=== PATIENT | male | born 2000 | race Caucasian/White ===

== ENCOUNTER 2021-04-19 07:22 | Emergency (ER) | payer OTHER ==
[~2021-04-19] VITALS: Ht 182.9 cm; Wt 59.0 kg
--- NOTE | 2021-04-19 08:15 | NUR ---
BIB PARTNER C/O R SIDED ABDOMINAL PAIN STARTED LAST NIGHT. RATES PAIN 7/10. WILL CONTINUE TO MONITOR THE PATIENT.
[2021-04-19 08:30] LABS: BASOPHILS % (AUTO) 0.4 % (0.0-2.0); EOSINOPHILS % (AUTO) 2.1 % (0.0-6.0); HEMATOCRIT 46 % (39-51); HEMOGLOBIN 15.2 g/dL (13.5-17.5); LYMPHOCYTES % (AUTO) 21.2 % (20.0-44.0); MEAN CORPUSCULAR HGB CONC 33 g/dl (31.0-36.0); MEAN CORPUSCULAR VOLUME 95 fL (80-96); MONOCYTES # (AUTO) 0.8 K/uL (0.1-1.30); MONOCYTES % (AUTO) 8.4 % (2.0-12.0); NEUTROPHILS # (AUTO) 6.3 K/uL (1.8-8.9); NEUTROPHILS % (AUTO) 67.9 % (43.0-81.0); PLATELET COUNT (AUTO) 246 K/uL (150-450); WHITE BLOOD COUNT (AUTO) 9.2 K/uL (4.3-11.0)
[2021-04-19] MEDS ORDERED: IV NS 0.9% 1,000 ML BAG IV ONE (08:30)
[2021-04-19] MEDS ORDERED: KETOROLAC TROMETHAMINE INJ 30 MG/ML VIAL IV ONE (08:30)
[2021-04-19] MEDS ORDERED: MORPHINE SULFATE INJ 2 MG/ML DISP.SYRIN IV ONE (08:30)
[2021-04-19] MEDS ORDERED: ONDANSETRON HCL/PF 4 MG/2 ML VIAL IVP ONE (08:30)
[2021-04-19 09:07] LABS: BILIRUBIN,URINE NEGATIVE (NEGATIVE); COLOR,URINE YELLOW (YELLOW); LEUKOCYTE ESTERASE ,URINE NEGATIVE (NEGATIVE); NITRITE, URINE NEGATIVE (NEGATIVE); PROTEIN,URINE NEGATIVE (NEGATIVE); UGLUCOSE NEGATIVE (NEGATIVE); UROBILINOGEN,URINE 0.2 EU/dL (0.2)
[2021-04-19 09:08] LABS: ALBUMIN 4.4 g/dL (3.4-5.0); BILIRUBIN,DIRECT 0.1 mg/dL (0.0-0.2); BILIRUBIN,TOTAL 0.3 mg/dL (0.2-1.0); CALCIUM, SERUM 8.7 mg/dL (8.5-10.1); CREATININE 0.9 mg/dL (0.6-1.3); POTASSIUM 4.1 mmol/L (3.5-5.1); TOTAL PROTEIN, SERUM 7.7 g/dL (6.4-8.2)
[2021-04-19] MEDS ORDERED: MORPHINE SULFATE INJ 2 MG/ML DISP.SYRIN ONE (09:08)
[2021-04-19] MEDS ORDERED: ONDANSETRON HCL/PF 4 MG/2 ML VIAL ONE (09:08)
[2021-04-19] MEDS ORDERED: KETOROLAC TROMETHAMINE INJ 30 MG/ML VIAL ONE (09:08)
[2021-04-19] MEDS ORDERED: DOCUSATE SODIUM LIQ 100 MG/10 ML UDC PO ONE (10:00)
[2021-04-19] MEDS ORDERED: TAMSULOSIN 0.4 MG CAP.SR.24H PO ONE (10:00)
[2021-04-19] MEDS ORDERED: DOCUSATE SODIUM LIQ 100 MG/10 ML UDC ONE (10:26)
[2021-04-19] MEDS ORDERED: TAMSULOSIN 0.4 MG CAP.SR.24H ONE (10:27)
[2021-04-19 10:32] LABS: BACTERIA,URINE Rare /HPF (None Seen); CALCIUM OXALATE CRYSTALS,UR Rare /HPF (None Seen); RBC,URINE TOO NUMEROUS TO COUN /HPF (0-2); SQUAMOUS EPITHELIAL CELL,UR Rare /HPF (None Seen); WBC,URINE 0-2 /HPF (0-3)
[2021-04-19] MEDS ORDERED: DOCU-141 PO (10:58)
[2021-04-19] MEDS ORDERED: TAMS-12 PO (10:58)
[2021-04-19] MEDS ORDERED: IBUP-1957 PO (10:58)
--- NOTE | 2021-04-19 11:17 | NUR ---
IV removed. Catheter intact and site benign. Pressure and 4x4 applied to site. No bleeding noted.Patient discharged to home in stable condition. Written and verbal after care instructions given. Patient verbalizes understanding of instruction.
[2021-04-19 11:18] VITALS: BP 158/75
[2021-04-19 14:33] LABS: CHOLESTEROL 151 mg/dL (<200); HDL CHOLESTEROL 30 mg/dL (40-60); LDL 98 mg/dL (0-99); TRIGLYCERIDES 149 mg/dL (30-150)
== END 2021-04-19 11:18 | disposition home or self-care (01) ==
LOC: ER 07:26
DX: N20.0 Calculus of kidney (principal); K59.00 Constipation, unspecified; R74.8 Abnormal levels of other serum enzymes
CPT/HCPCS: 36415; 74176; 76705; 80048; 80061; 80076; 81001; 83690; 85025; 96361; 96374; 96375; 99284; J1885; J2270; J2405; J7030

== ENCOUNTER 2021-04-26 07:54 | Emergency (ER) | payer OTHER ==
[~2021-04-26] VITALS: Ht 182.9 cm; Wt 61.2 kg
[~2021-04-26 07:54] MED LIST: DOCU-141 PO; IBUP-1957 PO; TAMS-12 PO
--- NOTE | 2021-04-26 08:06 | NUR ---
The patient bibs for c/o R flank pain started around 4 am, +N/V, Hx kidney stone, 03/22 ps. Abdomen soft and non-distended. Respiration regular and unlabored. Will continue to monitor the patient.
--- NOTE | 2021-04-26 08:08 | NUR ---
DR GOTTI AT THE BEDSIDE
--- NOTE | 2021-04-26 08:19 | NUR ---
STARTED LINE, BLOOD SPECIMEN COLLECTED AND SENT TO THE LAB. THE LINE IS SALINE LOCKED.
[2021-04-26] MEDS ORDERED: KETOROLAC TROMETHAMINE INJ 30 MG/ML VIAL ONE (08:20)
[2021-04-26] MEDS ORDERED: IV NS 0.9% 1,000 ML BAG IV ONE ×2 (08:30→10:30)
[2021-04-26] MEDS ORDERED: KETOROLAC TROMETHAMINE INJ 30 MG/ML VIAL IV ONE (08:30)
--- NOTE | 2021-04-26 08:58 | NUR ---
THE PATIENT STATES THAT HE DOES NOT FEEL THE URGE TO GIVE URINE AT THE TIME. WILL TRY AGAIN LATER.
[2021-04-26 09:14] LABS: BASOPHILS % (AUTO) 0.3 % (0.0-2.0); HEMATOCRIT 42 % (39-51); HEMOGLOBIN 14.2 g/dL (13.5-17.5); LYMPHOCYTES # (AUTO) 1.3 K/uL (0.8-4.8); LYMPHOCYTES % (AUTO) 10.6 % (20.0-44.0); MEAN CORPUSCULAR HGB CONC 34 g/dl (31.0-36.0); MEAN CORPUSCULAR VOLUME 93 fL (80-96); MONOCYTES # (AUTO) 0.7 K/uL (0.1-1.30); MONOCYTES % (AUTO) 5.6 % (2.0-12.0); NEUTROPHILS # (AUTO) 10.2 K/uL (1.8-8.9); NEUTROPHILS % (AUTO) 82.5 % (43.0-81.0); PLATELET COUNT (AUTO) 210 K/uL (150-450); RED BLOOD CELL COUNT(AUTO) 4.55 MIL/uL (4.5-6.0); WHITE BLOOD COUNT (AUTO) 12.4 K/uL (4.3-11.0)
[2021-04-26] MEDS ORDERED: ONDANSETRON HCL/PF 4 MG/2 ML VIAL ONE (09:14)
[2021-04-26] MEDS ORDERED: MORPHINE SULFATE INJ 4 MG/ML DISP.SYRIN ONE (09:14)
[2021-04-26 09:23] LABS: CALCIUM, SERUM 9.2 mg/dL (8.5-10.1); CREATININE 1.5 mg/dL (0.6-1.3)
[2021-04-26 09:29] LABS: ALBUMIN 4.5 g/dL (3.4-5.0); BILIRUBIN,DIRECT 0.1 mg/dL (0.0-0.2); BILIRUBIN,TOTAL 0.6 mg/dL (0.2-1.0); TOTAL PROTEIN, SERUM 7.6 g/dL (6.4-8.2)
[2021-04-26] MEDS ORDERED: MORPHINE SULFATE INJ 2 MG/ML DISP.SYRIN IV ONE (09:30)
[2021-04-26] MEDS ORDERED: ONDANSETRON HCL/PF 4 MG/2 ML VIAL IVP ONE (09:30)
--- NOTE | 2021-04-26 10:00 | NUR ---
THE PATIENT IS UNABLE TO URINATE AT THIS TIME. DR GOTTI MADE AWARE.
--- NOTE | 2021-04-26 10:49 | NUR ---
urine collected and sent to the lab
[2021-04-26 11:20] LABS: BILIRUBIN,URINE NEGATIVE (NEGATIVE); COLOR,URINE YELLOW (YELLOW); LEUKOCYTE ESTERASE ,URINE NEGATIVE (NEGATIVE); NITRITE, URINE NEGATIVE (NEGATIVE); PH,URINE 6.5 (5.0-8.0); PROTEIN,URINE TRACE mg/dl (NEGATIVE); UGLUCOSE NEGATIVE (NEGATIVE); UROBILINOGEN,URINE 0.2 EU/dL (0.2)
[2021-04-26] MEDS ORDERED: HYDR-3980 PO (11:45)
--- NOTE | 2021-04-26 12:01 | NUR ---
The patient is alert and oriented x4. Respiration regular and unlabored. rates right flank pain 1/10. IV removed. Catheter intact and site benign. Pressure and 4x4 applied to site. No bleeding noted.Patient discharged to home in stable condition. Written and verbal after care instructions given. Patient verbalizes understanding of instruction.
[2021-04-26 12:03] VITALS: BP 116/68
[2021-04-26 12:43] LABS: BACTERIA,URINE Few /HPF (None Seen); SQUAMOUS EPITHELIAL CELL,UR Rare /HPF (None Seen); WBC,URINE 0-2 /HPF (0-3)
== END 2021-04-26 12:03 | disposition home or self-care (01) ==
LOC: ER 07:58
DX: N23 Unspecified renal colic (principal)
CPT/HCPCS: 36415; 80048; 80076; 81001; 83690; 85025; 96361; 96374; 96375; 99284; J1885; J2270; J2405; J7030 ×2

== ENCOUNTER 2021-06-10 04:15 | Emergency (ER) | payer OTHER ==
[~2021-06-10] VITALS: Ht 182.9 cm; Wt 61.7 kg
[~2021-06-10 04:15] MED LIST changes: +HYDR-3980 PO
--- NOTE | 2021-06-10 04:26 | NUR ---
AAOX4. NOT IN RESP DISTRESS. CAME IN FOR R FLANK PAIN X TODAY. PT HAD HX OF KIDNEY STONE AND VERBALIZES THAT IT FEELS THE SAME. PAIN 10/10 CRAMPING. MD AT BEDSIDE. AWAITING FURTHER ORDERS
[2021-06-10] MEDS ORDERED: MORPHINE SULFATE INJ 4 MG/ML DISP.SYRIN ONE ×2 (04:29→04:32)
[2021-06-10] MEDS ORDERED: ONDANSETRON HCL/PF 4 MG/2 ML VIAL ONE (04:29)
[2021-06-10] MEDS ORDERED: IV NS 0.9% 1,000 ML BAG IV ONE (04:30)
[2021-06-10] MEDS ORDERED: ONDANSETRON HCL/PF 4 MG/2 ML VIAL IVP ONE (04:30)
[2021-06-10] MEDS ORDERED: KETOROLAC TROMETHAMINE INJ 30 MG/ML VIAL IV ONE (04:30)
[2021-06-10] MEDS ORDERED: MORPHINE SULFATE INJ 2 MG/ML DISP.SYRIN IV ONE (04:30)
[2021-06-10 04:43] LABS: BASOPHILS % (AUTO) 0.2 % (0.0-2.0); EOSINOPHILS % (AUTO) 0.9 % (0.0-6.0); HEMATOCRIT 44 % (39-51); LYMPHOCYTES # (AUTO) 2.2 K/uL (0.8-4.8); LYMPHOCYTES % (AUTO) 15.1 % (20.0-44.0); MEAN CORPUSCULAR HGB CONC 34 g/dl (31.0-36.0); MEAN CORPUSCULAR VOLUME 91 fL (80-96); MONOCYTES # (AUTO) 0.8 K/uL (0.1-1.30); MONOCYTES % (AUTO) 5.3 % (2.0-12.0); NEUTROPHILS # (AUTO) 11.5 K/uL (1.8-8.9); NEUTROPHILS % (AUTO) 78.5 % (43.0-81.0); PLATELET COUNT (AUTO) 230 K/uL (150-450); RED BLOOD CELL COUNT(AUTO) 4.85 MIL/uL (4.5-6.0); WHITE BLOOD COUNT (AUTO) 14.7 K/uL (4.3-11.0)
--- NOTE | 2021-06-10 05:26 | NUR ---
pt still unable to urinate at this time. pt did try multiple times. was made aware.
[2021-06-10] MEDS ORDERED: TAMS-12 PO (05:28)
[2021-06-10] MEDS ORDERED: HYDR-4275 PO (05:28)
[2021-06-10 05:37] LABS: ALBUMIN 4.7 g/dL (3.4-5.0); BILIRUBIN,DIRECT 0.2 mg/dL (0.0-0.2); CALCIUM, SERUM 9.1 mg/dL (8.5-10.1); CREATININE 1.5 mg/dL (0.6-1.3); TOTAL PROTEIN, SERUM 7.9 g/dL (6.4-8.2)
[2021-06-10] MEDS ORDERED: KETOROLAC TROMETHAMINE 15 MG/ML VIAL ONE (05:41)
[2021-06-10 05:47] LABS: POTASSIUM 2.7 mmol/L (3.5-5.1)
[2021-06-10] MEDS ORDERED: POTASSIUM CHLORIDE 20 MEQ TAB.PRT.SR PO ONE ×3 (06:00→06:03)
[2021-06-10] MEDS ORDERED: POTASSIUM CL. PREMIX PERIPHER. 100 ML ONE (06:02)
[2021-06-10] MEDS: POTASSIUM CL. PREMIX PERIPHER. 50 ML IV SCH ×2 (06:11→06:57)
--- NOTE | 2021-06-10 06:15 | NUR ---
PT STILL UNABLE TO PROVIDE URINE
--- NOTE | 2021-06-10 07:08 | NUR ---
URINE COLLECTED AND SENT TO LAB
--- NOTE | 2021-06-10 07:39 | NUR ---
THE PATIENT IS RECEIVED IN ER BED #9. THE PATIENT IS ALERT AND ORIENTED X4. IN ROOM AIR AND DENIES SOB. RESPIRATION REGULAR AND UNLABORED. WILL CONTINUE TO MONITOR THE PATIENT.
--- NOTE | 2021-06-10 08:21 | NUR ---
PT LAYING COMFORTABLY IN BED. VS STABLE. NO PAIN AT THIS TIME
[2021-06-10 08:27] LABS: BILIRUBIN,URINE NEGATIVE (NEGATIVE); COLOR,URINE YELLOW (YELLOW); LEUKOCYTE ESTERASE ,URINE NEGATIVE (NEGATIVE); NITRITE, URINE NEGATIVE (NEGATIVE); PROTEIN,URINE NEGATIVE (NEGATIVE); UGLUCOSE NEGATIVE (NEGATIVE); UROBILINOGEN,URINE 0.2 EU/dL (0.2)
--- NOTE | 2021-06-10 09:22 | NUR ---
IV removed. Catheter intact and site benign. Pressure and 4x4 applied to site. No bleeding noted.
--- NOTE | 2021-06-10 09:22 | NUR ---
Patient discharged to home in stable condition. Written and verbal after care instructions given. Patient verbalizes understanding of instruction.
[2021-06-10 09:29] VITALS: BP 100/69
[2021-06-10 10:18] LABS: BACTERIA,URINE Rare /HPF (None Seen); CALCIUM OXALATE CRYSTALS,UR Few /HPF (None Seen); SQUAMOUS EPITHELIAL CELL,UR None Seen /HPF (None Seen)
[2021-06-10 10:19] LABS: MUCUS,URINE Rare /LPF (None Seen)
== END 2021-06-10 09:22 | disposition home or self-care (01) ==
LOC: ER 04:17
DX: N23 Unspecified renal colic (principal)
CPT/HCPCS: 36415; 76770; 80048; 80076; 81001; 83690; 83735; 85025; 96361; 96365; 96366; 96375; 99285; J1885; J2270 ×2; J2405; J3480; J7030

== ENCOUNTER 2021-07-12 14:23 | Emergency (ER) | payer OTHER ==
[~2021-07-12] VITALS: Ht 182.9 cm; Wt 59.9 kg
[~2021-07-12 14:23] MED LIST changes: +HYDR-4275 PO
--- NOTE | 2021-07-12 14:28 | NUR ---
BIB SELF C/O R FLANK PAIN STARTED 2 HRS AGO. TO ER BED 2, HOOKED TO MONITOR, VSS. CHANGED TO HOSP GOWN, WARM BLANKET PROVIDED. AWAITING MD GARCIA
--- NOTE | 2021-07-12 14:34 | NUR ---
DR KAPLAN AT BEDSIDE
[2021-07-12] MEDS ORDERED: MORPHINE SULFATE INJ 4 MG/ML DISP.SYRIN ONE ×2 (14:37→16:11)
[2021-07-12] MEDS ORDERED: ONDANSETRON HCL/PF 4 MG/2 ML VIAL ONE (14:37)
[2021-07-12] MEDS ORDERED: KETOROLAC TROMETHAMINE 15 MG/ML VIAL ONE (14:43)
--- NOTE | 2021-07-12 14:50 | NUR ---
PATIENT NOT ABLE TO PROVIDE URINE SAMPLE AT THIS TIME.
--- NOTE | 2021-07-12 14:57 | NUR ---
DIA HUERTAS AT BEDSIDE
[2021-07-12 14:59] LABS: BASOPHILS # (AUTO) 0.1 K/uL (0.0-0.2); BASOPHILS % (AUTO) 0.5 % (0.0-2.0); EOSINOPHILS % (AUTO) 1.8 % (0.0-6.0); HEMATOCRIT 44 % (39-51); LYMPHOCYTES # (AUTO) 3.6 K/uL (0.8-4.8); LYMPHOCYTES % (AUTO) 39.6 % (20.0-44.0); MEAN CORPUSCULAR HGB CONC 34 g/dl (31.0-36.0); MEAN CORPUSCULAR VOLUME 91 fL (80-96); MONOCYTES # (AUTO) 0.5 K/uL (0.1-1.30); MONOCYTES % (AUTO) 5.9 % (2.0-12.0); NEUTROPHILS # (AUTO) 4.8 K/uL (1.8-8.9); NEUTROPHILS % (AUTO) 52.2 % (43.0-81.0); PLATELET COUNT (AUTO) 238 K/uL (150-450); RED BLOOD CELL COUNT(AUTO) 4.81 MIL/uL (4.5-6.0); WHITE BLOOD COUNT (AUTO) 9.2 K/uL (4.3-11.0)
[2021-07-12] MEDS ORDERED: ONDANSETRON HCL/PF 4 MG/2 ML VIAL IVP ONE (15:00)
[2021-07-12] MEDS ORDERED: IV NS 0.9% 1,000 ML BAG IV ONE ×2 (15:00→16:30)
[2021-07-12] MEDS ORDERED: KETOROLAC TROMETHAMINE INJ 30 MG/ML VIAL IV ONE (15:00)
[2021-07-12] MEDS ORDERED: MORPHINE SULFATE INJ 2 MG/ML DISP.SYRIN IV ONE ×2 (15:00→16:30)
[2021-07-12 15:15] LABS: CREATININE 1.2 mg/dL (0.6-1.3); POTASSIUM 3.1 mmol/L (3.5-5.1)
--- NOTE | 2021-07-12 15:50 | NUR ---
PATIENT UNABLE TO PROVIDE URINE SAMPLE AT THIS TIME. MADE AWARE
[2021-07-12] MEDS ORDERED: TAMSULOSIN 0.4 MG CAP.SR.24H ONE (16:27)
[2021-07-12] MEDS ORDERED: TAMSULOSIN 0.4 MG CAP.SR.24H PO ONE (16:30)
--- NOTE | 2021-07-12 16:37 | NUR ---
URINE SPECIMEN COLLECTED AND SENT TO LAB
[2021-07-12 16:46] LABS: BILIRUBIN,URINE NEGATIVE (NEGATIVE); COLOR,URINE YELLOW (YELLOW); LEUKOCYTE ESTERASE ,URINE NEGATIVE (NEGATIVE); NITRITE, URINE NEGATIVE (NEGATIVE); PROTEIN,URINE NEGATIVE (NEGATIVE); UGLUCOSE NEGATIVE (NEGATIVE); UROBILINOGEN,URINE 0.2 EU/dL (0.2)
[2021-07-12 17:13] LABS: BACTERIA,URINE RARE /HPF (None Seen); MUCUS,URINE Moderate /LPF (None Seen); WBC,URINE 0-2 /HPF (0-3)
[2021-07-12 17:37] LABS: SQUAMOUS EPITHELIAL CELL,UR 0-2 /HPF (None Seen)
[2021-07-12] MEDS ORDERED: POTASSIUM CHLORIDE 20 MEQ TAB.PRT.SR PO ONE ×2 (19:26→19:30)
--- NOTE | 2021-07-12 19:28 | NUR ---
ENDORSEMENT GIVEN TO ELY QUAN FOR JAKI
[2021-07-12 19:55] LABS: CALCIUM, SERUM 8.4 mg/dL (8.5-10.1); CREATININE 1.1 mg/dL (0.6-1.3); POTASSIUM 4.5 mmol/L (3.5-5.1)
--- NOTE | 2021-07-12 20:57 | NUR ---
IV removed. Catheter intact and site benign. Pressure and 4x4 applied to site. No bleeding noted. Patient discharged to home in stable condition. Written and verbal after care instructions given. Patient verbalizes understanding of instruction. PT ambulatory with a steady gait. VSS
[2021-07-12 21:02] VITALS: BP 103/61
== END 2021-07-12 21:03 | disposition home or self-care (01) ==
LOC: ER 14:23
DX: N20.0 Calculus of kidney (principal); Z79.1 Long term (current) use of non-steroidal anti-inflammatories (NSAID); Z79.891 Long term (current) use of opiate analgesic; Z79.899 Other long term (current) drug therapy
CPT/HCPCS: 36415; 76700; 80048 ×2; 81001; 85025; 96361; 96374; 96375 ×2; 96376; 99285; J1885; J2270 ×2; J2405; J7030 ×2

== ENCOUNTER 2021-07-19 00:19 | Emergency (ER) | payer OTHER ==
[~2021-07-19] VITALS: Ht 182.9 cm; Wt 59.9 kg
[2021-07-19] MEDS ORDERED: ONDANSETRON HCL/PF 4 MG/2 ML VIAL IVP ONE (00:30)
[2021-07-19] MEDS ORDERED: IV NS 0.9% 1,000 ML BAG IV ONE (00:30)
[2021-07-19] MEDS ORDERED: KETOROLAC TROMETHAMINE INJ 30 MG/ML VIAL IV ONE (00:30)
[2021-07-19] MEDS ORDERED: MORPHINE SULFATE INJ 2 MG/ML DISP.SYRIN IV ONE ×2 (00:30→02:00)
--- NOTE | 2021-07-19 00:30 | NUR ---
PATIENT BIBSELF C/O RIGHT ABD PAIN X 30MIN AGO Hx KIDNEY STONES, PAIN 8/10 S/P DINNER TONIGHT. PATIENT IS A/O X 4, RR EVEN AND UNLABORED, NO SOB NOTED. PATIENT CONNECTED TO CARDIAC AND POX MONITOR.
[2021-07-19] MEDS ORDERED: ONDANSETRON HCL/PF 4 MG/2 ML VIAL ONE (00:33)
[2021-07-19] MEDS ORDERED: KETOROLAC TROMETHAMINE INJ 30 MG/ML VIAL ONE (00:33)
[2021-07-19] MEDS ORDERED: MORPHINE SULFATE INJ 4 MG/ML DISP.SYRIN ONE ×2 (00:33→01:36)
--- NOTE | 2021-07-19 00:35 | NUR ---
20G IV LINE INITIATED AT THE LAC PATENT AND INTACT. BLOOD DRAWN AND SENT TO LAB. PT UNABLE TO PROVIDE URINE AT THIS TIME.
[2021-07-19 00:58] LABS: BASOPHILS % (AUTO) 0.4 % (0.0-2.0); EOSINOPHILS % (AUTO) 1.6 % (0.0-6.0); HEMATOCRIT 43 % (39-51); HEMOGLOBIN 14.9 g/dL (13.5-17.5); LYMPHOCYTES # (AUTO) 3.9 K/uL (0.8-4.8); LYMPHOCYTES % (AUTO) 39.5 % (20.0-44.0); MEAN CORPUSCULAR HGB CONC 35 g/dl (31.0-36.0); MEAN CORPUSCULAR VOLUME 92 fL (80-96); MONOCYTES # (AUTO) 0.6 K/uL (0.1-1.30); MONOCYTES % (AUTO) 6.1 % (2.0-12.0); NEUTROPHILS # (AUTO) 5.1 K/uL (1.8-8.9); NEUTROPHILS % (AUTO) 52.4 % (43.0-81.0); PLATELET COUNT (AUTO) 252 K/uL (150-450); RED BLOOD CELL COUNT(AUTO) 4.71 MIL/uL (4.5-6.0); WHITE BLOOD COUNT (AUTO) 9.8 K/uL (4.3-11.0)
--- NOTE | 2021-07-19 01:05 | NUR ---
ULTRASOUND AT BEDSIDE
[2021-07-19 01:28] LABS: ALBUMIN 4.9 g/dL (3.4-5.0); BILIRUBIN,TOTAL 0.6 mg/dL (0.2-1.0); CALCIUM, SERUM 9.3 mg/dL (8.5-10.1); CREATININE 1.1 mg/dL (0.6-1.3); POTASSIUM 3.3 mmol/L (3.5-5.1); TOTAL PROTEIN, SERUM 8.1 g/dL (6.4-8.2)
[2021-07-19] MEDS ORDERED: HYDROMORPHONE 1 MG/1 ML DISP.SYRIN IV ONE (03:00)
[2021-07-19] MEDS ORDERED: oxyCODONE/APAP (5/325 MG) 1 UDTAB TABLET ONE (03:22)
[2021-07-19] MEDS ORDERED: TAMSULOSIN 0.4 MG CAP.SR.24H ONE (03:22)
--- NOTE | 2021-07-19 03:25 | NUR ---
PT STILL UNABLE TO PROVIDE URINE SAMPLE AFTER MULTIPLE ATTEMPTS.
[2021-07-19] MEDS ORDERED: TAMSULOSIN 0.4 MG CAP.SR.24H PO ONE (03:30)
[2021-07-19] MEDS ORDERED: oxyCODONE/APAP (5/325 MG) 1 UDTAB TABLET PO ONE (03:30)
[2021-07-19] MEDS ORDERED: TAMS-12 PO (03:44)
[2021-07-19] MEDS ORDERED: HYDR-3980 PO (03:44)
[2021-07-19] MEDS ORDERED: IBUP-1957 PO (03:44)
--- NOTE | 2021-07-19 04:23 | NUR ---
Patient discharged to home in stable condition. Written and verbal after care instructions given. Patient verbalizes understanding of instruction.
[2021-07-19 04:32] VITALS: BP 128/72
[2021-07-19 06:47] LABS: BILIRUBIN,DIRECT 0.1 mg/dL (0.0-0.2)
== END 2021-07-19 04:32 | disposition home or self-care (01) ==
LOC: ER 00:27
DX: N23 Unspecified renal colic (principal); Z79.899 Other long term (current) drug therapy
CPT/HCPCS: 36415; 76770; 80048; 80076; 83690; 85025; 96361; 96374; 96375; 96376; 99285; J1885; J2270 ×2; J2405; J7030 ×2

== ENCOUNTER 2021-07-25 21:04 | Emergency (ER) | payer OTHER ==
[~2021-07-25] VITALS: Ht 182.9 cm; Wt 59.9 kg
--- NOTE | 2021-07-25 21:40 | NUR ---
BIBS C/O RIGHT ABDOMINAL PAIN RADIATING TO RIGHT FLANK AREA HX OF KIDNEY STONE. PT ALERT AND ORIENTED X4 BREATHING EVEN AND UNLABORED. PLACED ON MONITOR AND PULSE OX AND ALL V/S STABLE.
[2021-07-25] MEDS ORDERED: KETOROLAC TROMETHAMINE 15 MG/ML VIAL ONE ×2 (21:57→23:12)
[2021-07-25] MEDS ORDERED: IV NS 0.9% 1,000 ML BAG IV ONE (22:00)
[2021-07-25] MEDS ORDERED: KETOROLAC TROMETHAMINE INJ 30 MG/ML VIAL IV ONE ×2 (22:00→23:00)
--- NOTE | 2021-07-25 22:00 | NUR ---
20G IV LINE INTIATED AT LAC PATENT AND INTACT. URINE COLLECTED AND BLOOD DRAWN AND SENT TO LAB.
--- NOTE | 2021-07-25 22:05 | NUR ---
PT BEING TRANSPORTED TO CT VIA [facility], [place]
--- NOTE | 2021-07-25 22:15 | NUR ---
PT RETURNED FROM CT
[2021-07-25 22:28] LABS: BILIRUBIN,URINE NEGATIVE (NEGATIVE); COLOR,URINE YELLOW (YELLOW); LEUKOCYTE ESTERASE ,URINE NEGATIVE (NEGATIVE); NITRITE, URINE NEGATIVE (NEGATIVE); PROTEIN,URINE NEGATIVE (NEGATIVE); UGLUCOSE NEGATIVE (NEGATIVE); UROBILINOGEN,URINE 0.2 EU/dL (0.2)
[2021-07-25 22:30] LABS: BASOPHILS % (AUTO) 0.4 % (0.0-2.0); HEMATOCRIT 40 % (39-51); HEMOGLOBIN 13.9 g/dL (13.5-17.5); LYMPHOCYTES # (AUTO) 2.8 K/uL (0.8-4.8); LYMPHOCYTES % (AUTO) 35.3 % (20.0-44.0); MEAN CORPUSCULAR HGB CONC 35 g/dl (31.0-36.0); MEAN CORPUSCULAR VOLUME 92 fL (80-96); MONOCYTES # (AUTO) 0.5 K/uL (0.1-1.30); MONOCYTES % (AUTO) 6.8 % (2.0-12.0); NEUTROPHILS # (AUTO) 4.5 K/uL (1.8-8.9); NEUTROPHILS % (AUTO) 56.5 % (43.0-81.0); PLATELET COUNT (AUTO) 231 K/uL (150-450); RED BLOOD CELL COUNT(AUTO) 4.38 MIL/uL (4.5-6.0); WHITE BLOOD COUNT (AUTO) 7.9 K/uL (4.3-11.0)
[2021-07-25 22:33] LABS: BACTERIA,URINE Rare /HPF (None Seen); SQUAMOUS EPITHELIAL CELL,UR Few /HPF (None Seen); WBC,URINE 0-2 /HPF (0-3)
[2021-07-25 22:47] LABS: CALCIUM, SERUM 8.6 mg/dL (8.5-10.1); POTASSIUM 3.5 mmol/L (3.5-5.1)
[2021-07-25] MEDS ORDERED: IBUP-1957 PO (23:11)
[2021-07-25] MEDS ORDERED: TRAM-351 PO (23:11)
--- NOTE | 2021-07-25 23:35 | NUR ---
Patient discharged to home in stable condition. Written and verbal after care instructions given. Patient verbalizes understanding of instruction.
[2021-07-25 23:46] VITALS: BP 127/78
== END 2021-07-25 23:46 | disposition home or self-care (01) ==
LOC: ER 21:09
DX: N23 Unspecified renal colic (principal); Z79.899 Other long term (current) drug therapy
CPT/HCPCS: 36415; 74176; 80048; 81001; 85025; 96361; 96374; 96376; 99284; J1885 ×2; J7030

== ENCOUNTER → 2024-12-11 | Emergency (ER) | payer OTHER ==
[~2024-12-11] VITALS: Ht 177.8 cm; Wt 59.0 kg
[~2024-12-11] MED LIST changes: +TRAM-351 PO
[2024-12-11 17:50] VITALS: TEMP 98.4
[2024-12-11 18:25] VITALS: BP 110/64; O2SAT 99
[2024-12-11 19:06] LABS: PLATELET COUNT (AUTO) 203 K/uL (150-450); RED BLOOD CELL COUNT(AUTO) 4.93 MIL/uL (4.5-6.0); RED CELL DISTRIBUTION WIDTH 12.2 % (11.5-15.0); WHITE BLOOD COUNT (AUTO) 7.5 K/uL (4.3-11.0)
[2024-12-11 19:07] LABS: APPEARANCE,URINE CLEAR (CLEAR); BLOOD, URINE 3+ Ery/uL (NEGATIVE); LEUKOCYTE ESTERASE ,URINE NEGATIVE (NEGATIVE); NITRITE, URINE NEGATIVE (NEGATIVE); UGLUCOSE NEGATIVE (NEGATIVE)
[2024-12-11 19:09] LABS: ADD URINE CULTURE YES; HYALINE CASTS, URINE Few /LPF (None Seen); SQUAMOUS EPITHELIAL CELL,UR Rare /HPF (None Seen)
[2024-12-11 19:13] LABS: CALCIUM, SERUM 9.0 mg/dL (8.5-10.1); CREATININE 1.1 mg/dL (0.6-1.3); SODIUM SERUM 134.0 mmol/L (136-145); UREA NITROGEN, BLOOD 18.0 mg/dL (7-18)
== END | disposition home or self-care (01) ==
LOC: ER 17:43
DX: R31.9 Hematuria, unspecified (principal); J45.909 Unspecified asthma, uncomplicated; Z79.1 Long term (current) use of non-steroidal anti-inflammatories (NSAID); Z87.442 Personal history of urinary calculi
CPT/HCPCS: 36415; 80048-TC; 81001; 82550-TC; 85025-TC; 87086-TC

== ENCOUNTER 2025-01-14 18:31 | Emergency (ER) | payer OTHER ==
[~2025-01-14] VITALS: Ht 182.9 cm; Wt 57.6 kg
[2025-01-14 19:14] LABS: CALCIUM, SERUM 8.8 mg/dL (8.5-10.1); CREATININE 0.9 mg/dL (0.6-1.3); SODIUM SERUM 137.0 mmol/L (136-145); UREA NITROGEN, BLOOD 10.0 mg/dL (7-18)
[2025-01-14 19:17] LABS: PLATELET COUNT (AUTO) 210 K/uL (150-450); RED BLOOD CELL COUNT(AUTO) 4.42 MIL/uL (4.5-6.0); RED CELL DISTRIBUTION WIDTH 12.3 % (11.5-15.0); WHITE BLOOD COUNT (AUTO) 8.3 K/uL (4.3-11.0)
[2025-01-14 20:10] LABS: APPEARANCE,URINE CLEAR (CLEAR); BLOOD, URINE TRACE-INTA Ery/uL (NEGATIVE); LEUKOCYTE ESTERASE ,URINE NEGATIVE (NEGATIVE); NITRITE, URINE NEGATIVE (NEGATIVE); UGLUCOSE NEGATIVE (NEGATIVE)
[2025-01-14] MEDS ORDERED: IBUP-1490 PO (20:17)
[2025-01-14 20:31] LABS: ADD URINE CULTURE NO; SQUAMOUS EPITHELIAL CELL,UR Few /HPF (None Seen)
[2025-01-14 20:41] VITALS: BP 110/60; TEMP 98.8; O2SAT 97
== END 2025-01-14 20:42 | disposition home or self-care (01) ==
LOC: ER 18:33
DX: N20.2 Calculus of kidney with calculus of ureter (principal); Z79.1 Long term (current) use of non-steroidal anti-inflammatories (NSAID); Z79.899 Other long term (current) drug therapy
CPT/HCPCS: 36415; 80048-TC; 81001; 85025-TC

== ENCOUNTER 2025-04-01 16:48 | Emergency (ER) | payer MEDICAID, OTHER ==
[~2025-04-01] VITALS: Ht 182.9 cm; Wt 61.7 kg
[~2025-04-01 16:48] MED LIST changes: +IBUP-1490 PO
[2025-04-01] MEDS ORDERED: IV NS 0.9% 250 ML IV ONE (18:05)
[2025-04-01] MEDS ORDERED: IOHEXOL-300 100 ML VIAL IV ONE (18:05)
[2025-04-01 19:59] VITALS: BP 104/60; TEMP 98.6; O2SAT 97
== END 2025-04-01 19:59 | disposition home or self-care (01) ==
LOC: ER 16:52
DX: N20.0 Calculus of kidney (principal); Z79.1 Long term (current) use of non-steroidal anti-inflammatories (NSAID)
CPT/HCPCS: 99285; 74177; J7050; Q9967